=== PATIENT | male | born 1985 | race Caucasian/White ===

== ENCOUNTER 2022-10-13 12:09 | Inpatient (IN) | payer BC ==
[2022-10-13] MEDS ORDERED: Ondansetron PF 4 MG/2 ML Vial ONE (12:43)
[2022-10-13] MEDS ORDERED: Fentanyl 100 MCG/2 ML VIAL ONE ×2 (12:44→13:39)
[2022-10-13 13:04] LABS: Hemoglobin 13.1 g/dL (13.5-17.5); Mean Corpuscular HGB CONC 34.1 g/dL (32.0-36.0); Mean Corpuscular Hemoglobin 31.6 pg (27.0-33.0); Mean Corpuscular Volume 92.5 fl (81.2-95.1); Mean Platelet Volume 9.1 fl (7.4-10.4); Platelet Count 281 10x3/uL (150-450); RBC Distribution Width 12.3 % (11.5-14.5); Red Blood Cell (RBC) Count 4.15 10x6/uL (4.32-5.72); White Blood Cell (WBC) Count 26.9 10x3/uL (3.5-10.5)
[2022-10-13 13:08] LABS: D-Dimer Test Less than 0.19 mg/L FEU (0.19-0.50); INR-International Normal Ratio 1.1; PTT 28.1 sec (22.0-33.0); Prothrombin Time 11.7 sec (9.5-12.1)
[2022-10-13 13:32] LABS: MDiff Complete? YES
[2022-10-13 13:35] LABS: ALT (SGPT) 51 U/L (8-55); AST (SGOT) 65 U/L (5-34); Albumin 4.7 g/dL (3.5-5.0); Alkaline Phosphatase 40 U/L (40-110); Anion Gap 16 mmol/L (10-20); BUN (Urea Nitrogen) 15 mg/dL (8.9-20.6); Bilirubin, Total 1.5 mg/dL (0.2-1.2); CK (CPK) 2863 U/L (30-200); Calc. Creatinine Clearance 0 mL/min (70-130); Calcium 9.3 mg/dL (7.8-10.44); Carbon Dioxide 24 mmol/L (22-29); Chloride 98 mmol/L (98-107); Estimated GFR 73; Globulin 2.9 g/dL (2.4-3.5); Glucose 108 mg/dL (70-105); Lipase 14 U/L (8-78); Protein, Total 7.6 g/dL (6.0-8.3); Sodium 134 mmol/L (136-145)
[2022-10-13 14:02] LABS: Manual Diff?? YES
[2022-10-13 14:08] LABS: Band 31 % (5-11); Lymphocytes 5 % (21-51); Monocytes 10 % (0-10); Neutrophil 54 % (42-75)
[2022-10-13 14:10] LABS: Dohle Bodies SLIGHT; Toxic Granulation SLIGHT; Vacuoles SLIGHT
[2022-10-13] MEDS ORDERED: Cefepime 2 GM VIAL ONE (14:22)
[2022-10-13] MEDS ORDERED: Ondansetron PF 4 MG/2 ML Vial IVP PRN (14:26)
[2022-10-13 14:27] LABS: SARS-CoV-2 NAA Rapid Test Not Detected (NotDetected)
[2022-10-13] MEDS ORDERED: Metoclopramide HCl 10 MG/2 ML VIAL ONE (14:40)
[2022-10-13] MEDS ORDERED: Morphine 4 MG/ML VIAL ONE (14:40)
[2022-10-13] MEDS ORDERED: VANCOMYCIN 2 GRAM/400 ML BAG 2 GM in Premix Bag 1 BAG IVPB SCH (15:00)
[2022-10-13] MEDS ORDERED: Ipratropium/Albuterol 3 ML NEB ONE (15:35)
[2022-10-13] MEDS ORDERED: Iopamidol 300 61% 100 ML VIAL FS ONE (15:42)
[2022-10-13] MEDS ORDERED: Lorazepam 2 MG/ML VIAL ONE (15:57)
[2022-10-13 18:08] VITALS: BMI 28.3
[2022-10-13] MEDS: Lactated Ringer's 1,000 ML IV SCH ×2 (19:54→22:03)
[2022-10-13] MEDS ORDERED: Ketorolac Tromethamine 30 MG/ML VIAL IVP SCH (20:00)
[2022-10-13] MEDS: Ipratropium/Albuterol 3 ML NEB NEB SCH ×2 (20:25→23:50)
[2022-10-13 20:36] LABS: Legionella Urinary Ag Negative (Negative); Strep pneumo Urine Ag NEGATIVE (NEGATIVE)
[2022-10-13] MEDS: Azithromycin 500 MG in Sodium Chloride 0.9% 250 ML 250 ML IVPB SCH (22:03)
[2022-10-13] MEDS: Acetaminophen 325 MG TAB PO PRN (22:03)
[2022-10-14] MEDS: Ipratropium/Albuterol 3 ML NEB NEB SCH ×5 (02:30→20:15)
[2022-10-14] MEDS: cefTRIAXone\\ROCEPHIN 1 GM in Sodium Chloride 0.9% 100 ML IVPB SCH (03:34)
[2022-10-14] MEDS: Ketorolac Tromethamine 30 MG/ML VIAL IVP PRN ×2 (04:28→20:30)
[2022-10-14] MEDS: Guaifenesin DM 100-10/5 ML UDCUP PO PRN ×2 (04:32→20:37)
[2022-10-14 05:51] LABS: Hemoglobin 11.3 g/dL (13.5-17.5); Mean Corpuscular HGB CONC 33.7 g/dL (32.0-36.0); Mean Corpuscular Hemoglobin 31.7 pg (27.0-33.0); Mean Corpuscular Volume 94.1 fl (81.2-95.1); Mean Platelet Volume 9.1 fl (7.4-10.4); Platelet Count 226 10x3/uL (150-450); RBC Distribution Width 12.5 % (11.5-14.5); Red Blood Cell (RBC) Count 3.56 10x6/uL (4.32-5.72); White Blood Cell (WBC) Count 19.4 10x3/uL (3.5-10.5)
[2022-10-14 06:06] LABS: ALT (SGPT) 33 U/L (8-55); AST (SGOT) 36 U/L (5-34); Albumin 3.5 g/dL (3.5-5.0); Alkaline Phosphatase 38 U/L (40-110); Anion Gap 15 mmol/L (10-20); BUN (Urea Nitrogen) 13 mg/dL (8.9-20.6); Bilirubin, Total 0.6 mg/dL (0.2-1.2); CK (CPK) 1349 U/L (30-200); Calc. Creatinine Clearance 133 mL/min (70-130); Calcium 8.5 mg/dL (7.8-10.44); Carbon Dioxide 21 mmol/L (22-29); Chloride 105 mmol/L (98-107); Estimated GFR 94; Globulin 2.8 g/dL (2.4-3.5); Glucose 206 mg/dL (70-105); Potassium 3.3 mmol/L (3.5-5.1); Protein, Total 6.3 g/dL (6.0-8.3); Sodium 138 mmol/L (136-145)
[2022-10-14] MEDS: Lactated Ringer's 1,000 ML IV SCH (06:19)
[2022-10-14 07:16] LABS: MDiff Complete? YES
[2022-10-14 07:30] LABS: Band 20 % (5-11); Lymphocytes 6 % (21-51); Monocytes 1 % (0-10); Neutrophil 73 % (42-75)
[2022-10-14 07:34] LABS: Platelet Morphology Comment Appears Adequate
[2022-10-14 07:35] LABS: RBC Morphology Normal
[2022-10-14] MEDS ORDERED: Potassium Chloride 20 MEQ TAB PO SCH (08:15)
[2022-10-14] MEDS ORDERED: PROBENECID PO SCH (09:00)
[2022-10-14] MEDS ORDERED: COLCHICINE PO SCH (09:00)
[2022-10-14] MEDS ORDERED: LISDEXAMFETAMINE DIMESYLATE 70 MG PO SCH (09:00)
[2022-10-14] MEDS ORDERED: [UNRECOGNIZED DRUG - OTHER] PO SCH (09:00)
[2022-10-14] MEDS: Acetaminophen 325 MG TAB PO PRN (11:30)
[2022-10-14 14:53] LABS: Hemoglobin A1c 5.2 % (4.0-6.0)
[2022-10-14] MEDS: Azithromycin 500 MG in Sodium Chloride 0.9% 250 ML 250 ML IVPB SCH (20:41)
[2022-10-15] MEDS: Ipratropium/Albuterol 3 ML NEB NEB SCH ×5 (00:08→15:49)
[2022-10-15] MEDS: cefTRIAXone\\ROCEPHIN 1 GM in Sodium Chloride 0.9% 100 ML IVPB SCH (00:56)
[2022-10-15] MEDS: Guaifenesin DM 100-10/5 ML UDCUP PO PRN (00:56)
[2022-10-15] MEDS: Ketorolac Tromethamine 30 MG/ML VIAL IVP PRN (01:53)
[2022-10-15 04:39] LABS: #Eosinphils 0.1 10x3/uL (0.0-0.5); #Monocytes 1.1 10x3/uL (0.0-1.1); #Neutrophils 12.1 10x3/uL (1.5-8.4); %Basophils 0.2 % (0.0-2.0); %Eosinophils 0.8 % (0.0-6.0); %Lymphocytes 8.6 % (18.0-47.0); %Monocytes 7.3 % (0.0-10.0); %Neutrophils 82.1 % (40.0-75.0); Hemoglobin 10.1 g/dL (13.5-17.5); Mean Corpuscular HGB CONC 33.6 g/dL (32.0-36.0); Mean Corpuscular Hemoglobin 31.1 pg (27.0-33.0); Mean Corpuscular Volume 92.6 fl (81.2-95.1); Mean Platelet Volume 9.2 fl (7.4-10.4); Platelet Count 224 10x3/uL (150-450); RBC Distribution Width 12.4 % (11.5-14.5); Red Blood Cell (RBC) Count 3.25 10x6/uL (4.32-5.72); White Blood Cell (WBC) Count 14.7 10x3/uL (3.5-10.5)
[2022-10-15 04:54] LABS: Anion Gap 14 mmol/L (10-20); BUN (Urea Nitrogen) 10 mg/dL (8.9-20.6); Calc. Creatinine Clearance 157 mL/min (70-130); Calcium 8.7 mg/dL (7.8-10.44); Carbon Dioxide 22 mmol/L (22-29); Chloride 108 mmol/L (98-107); Estimated GFR 113; Glucose 108 mg/dL (70-105); Potassium 3.8 mmol/L (3.5-5.1); Sodium 140 mmol/L (136-145)
[2022-10-15 11:45] VITALS: TEMP 98.5
[2022-10-15 21:33] VITALS: BP 123/75
[2022-10-16] MEDS ORDERED: FLU VACC QS2022-23(6MO UP)/PF 60 MCG/0.5 ML SYRINGE IM ONE (18:30)
== END 2022-10-15 04:35 | disposition home or self-care (01) | DRG 871 ==
LOC: CSHERS 12:09 → CSHTELE 14:44
PROVIDERS: ADMIT Internal Medicine; ATTEND Internal Medicine
DX: A41.9 Sepsis, unspecified organism (principal); J18.9 Pneumonia, unspecified organism; M62.82 Rhabdomyolysis; R04.2 Hemoptysis; Z20.822 Contact with and (suspected) exposure to COVID-19; M10.9 Gout, unspecified; E87.6 Hypokalemia; E87.70 Fluid overload, unspecified
CPT/HCPCS: 36415; 71045; 71046; 71275; 80048; 80053; 82550; 83036; 83605; 83690; 83880; 84145; 84484; 85025; 85379; 85610; 85652; 85730; 86140; 86480; 87040; 87070; 87205; 87449; 87899; 93005; 94640; 94760; 94762; 94799; 96365; 96366; 96367; 96375; 96376; J0456; J0692; J0696; J1885; J2060; J2270; J2405; J2765; J3010; J3370; J3490; J7050; J7120; J7620; Q9967